=== PATIENT | male | born 1995 | race Caucasian/White ===

== ENCOUNTER 2017-03-13 08:18 | Emergency (ER) | payer BC ==
[2017-03-13 08:28] VITALS: RESP 18
--- NOTE | 2017-03-13 08:47 | EDPHY ---
H & P Time Seen by Provider: 03/13/17 08:40 HPI/ROS: CHIEF COMPLAINT: Irregular heart rate HISTORY OF PRESENT ILLNESS: 21-year-old man presents with irregular heartbeat and skipping heart rate. He says it has been happening for at least the past year but may be worse last 2 months. He presents today saying that he felt his heart skipping beats this morning or being irregular and started having tingling and numbness in both hands and "feeling all panicked "so presents to the emergency department for evaluation. He feels heart rate is slowing down speeding up and that it "drops a beat "but without actual syncope or fainting. No chest pain or shortness of breath. No leg swelling or recent travel or immobilization. REVIEW OF SYSTEMS: Eye: no change in vision ENT: no sore throat Cardiac: HPI Pulmonary: no cough or SOB Abdomen: no vomiting, diarrhea, abdominal pain Musculoskeletal: no back pain Skin: no rash Neuro: no headache Constitutional: no fever : no urinary symptoms A comprehensive 10 point review of systems is otherwise negative aside from elements mentioned in the history of present illness. PAST MEDICAL HISTORY: Negative except for seasonal allergies Social history: No tobacco cocaine or amphetamines General Appearance: Alert and conversant, cooperative. Eyes: No scleral icterus. ENT, Mouth: Normal mucous membranes. Respiratory: Normal respiratory effort, breath sounds equal, lungs are clear to auscultation. Cardiovascular: Regular rate and rhythm. Occasional extrasystole. Gastrointestinal: Abdomen is soft and non tender. Neurological: Alert and oriented x3. Normally conversant. Face symmetric, normal movement and sensation in all extremities. Skin: Warm and dry, no rashes. Musculoskeletal: No peripheral edema and no joint swelling. No calf tenderness. Psychiatric: Moderately anxious. Emergency Department course/MDM: Patient's rhythm strips are reviewed and at 8:42 a.m. he is seen to have PAC or PJC with subsequent pause, this is likely the source of his symptoms. Patient's EKG is reviewed with inverted P waves, he does transition on his rhythm strip after a dropped beat to upright P waves. Cardiology consultation, Stallworth at [phone]. Ectopic atrial rhythm, recommends discharge with office follow-up. 1030: Results discussed with patient and with his mother Judie at the patient' s request. Smoking Status: Current some day smoker Constitutional: Initial Vital Signs Temperature (C) 36.5 C 12/20/17 08:26 Heart Rate 98 03/13/17 08:26 Respiratory Rate 18 03/13/17 08:26 Blood Pressure 159/101 H 03/13/17 08:26 O2 Sat (%) 98 03/13/17 08:26 O2 Delivery Mode Room Air Allergies/Adverse Reactions: No Known Allergies Allergy (Unverified 03/13/17 08:25) Home Medications: Medication Instructions Recorded Flonase Nasal [place] 03/13/17 NK [No Known Home Meds] 03/13/17 Medical Decision Making - Diagnostics EKG Interpretation: 12-lead EKG interpreted by me; official reading is in trace master. My interpretation is ectopic atrial rhythm, rate 91 - Data Points Laboratory Results: Laboratory Results 03/13/17 09:40 03/13/17 09:40 03/13/17 03/13/17 09:40 09:40 WBC 6.54 10^3/uL 10^3/uL (3.80-9.50) RBC 4.96 10^6/uL 10^6/uL (4.40-6.38) Hgb 16.0 g/dL g/dL (13.7-17.5) Hct 43.0 % % (40.0-51.0) MCV 86.7 fL fL (81.5-99.8) MCH 32.3 pg pg (27.9-34.1) MCHC 37.2 g/dL H g/dL (32.4-36.7) RDW 12.1 % % (11.5-15.2) Plt Count 196 10^3/uL 10^3/uL (150-400) MPV 11.2 fL fL (8.7-11.7) Neut % (Auto) 68.1 % % (39.3-74.2) Lymph % (Auto) 23.4 % % (15.0-45.0) [place] % (Auto) 6.1 % % (4.5-13.0) Eos % (Auto) 1.1 % % (0.6-7.6) Baso % (Auto) 1.1 % % (0.3-1.7) Nucleat RBC Rel Count 0.0 % % (0.0-0.2) Absolute Neuts (auto) 4.46 10^3/uL 10^3/uL (1.70-6.50) Absolute Lymphs (auto) 1.53 10^3/uL 10^3/uL (1.00-3.00) Absolute Monos (auto) 0.40 10^3/uL 10^3/uL (0.30-0.80) Absolute Eos (auto) 0.07 10^3/uL 10^3/uL (0.03-0.40) Absolute Basos (auto) 0.07 10^3/uL 10^3/uL (0.02-0.10) Absolute Nucleated RBC 0.00 10^3/uL 10^3/uL (0-0.01) Immature Gran % 0.2 % % (0.0-1.1) Immature Gran # 0.01 10^3/uL 10^3/uL (0.00-0.10) Sodium 146 mEq/L H mEq/L (134-144) Potassium 4.0 mEq/L mEq/L (3.5-5.2) Chloride 106 mEq/L mEq/L (97-110) Carbon Dioxide 25 mEq/l mEq/l (22-31) Anion Gap 15 mEq/L mEq/L (8-16) BUN 16 mg/dL mg/dL (7-23) Creatinine 0.9 mg/dL mg/dL (0.7-1.3) Estimated GFR > 60 Glucose 90 mg/dL mg/dL (70-100) Calcium 9.7 mg/dL mg/dL (8.5-10.4) TSH 2.850 uIU/mL uIU/mL (0.465-4.680) Departure - Departure Disposition: Home, Routine, Self-Care Clinical Impression: Ectopic atrial rhythm Condition: Good Instructions: Atrial Tachycardia (ED) Additional Instructions: Your referred to Cardiology, follow-up next week in the office. Referrals: Steffanie Stallworth PA [Physician Licensed Mortgage Loan Officer] - As per Instructions Ralph Whyte MD [Medical Doctor] - As per Instructions
--- NOTE | 2017-03-13 08:53 | CPEKG ---
Heart Rate: 91 RR Interval: 659 P-R Interval: 180 QRSD Interval: 108 QT Interval: 368 QTC Interval: 453 P Friedens: -78 QRS Fried[place]: 86 T Wave Fried[place]: 39 EKG Severity - BORDERLINE ECG - EKG Impression: ECTOPIC ATRIAL RHYTHM Electronically Signed By: Stas Smith 13-Mar-2017 13:02:39
[2017-03-13 09:50] LABS: % IMMATURE GRANULYOCYTES 0.2 % (0.0-1.1); ABSOLUTE IMMATURE GRANULOCYTES 0.01 10^3/uL (0.00-0.10); ADD DIFF? NO; ADD MORPH? NO; ADD SCAN? NO; ATYPICAL LYMPHOCYTE FLAG 0 (0-99); FRAGMENT RBC FLAG 0 (0-99); LEFT SHIFT FLG 0 (0-99); LIPEMIA HEMOLYSIS FLAG 90 (0-99); MEAN CELL HEMOGLOBIN 32.3 pg (27.9-34.1); MEAN CELL HEMOGLOBIN CONCENTR. 37.2 g/dL (32.4-36.7); MEAN CELL VOLUME 86.7 fL (81.5-99.8); MEAN PLATELET VOLUME 11.2 fL (8.7-11.7); PLATELET CLUMPS FLAG 0 (0-99); PLATELET COUNT 196 10^3/uL (150-400); RED BLOOD CELL COUNT 4.96 10^6/uL (4.40-6.38); RED CELL DISTRIBUTION WIDTH 12.1 % (11.5-15.2)
[2017-03-13 10:14] LABS: ANION GAP 15 mEq/L (8-16); CALCIUM 9.7 mg/dL (8.5-10.4); CARBON DIOXIDE 25 mEq/l (22-31); CHLORIDE 106 mEq/L (97-110); CREATININE 0.9 mg/dL (0.7-1.3); GLOMERULAR FILTRATION RATE > 60; GLUCOSE 90 mg/dL (70-100); SODIUM 146 mEq/L (134-144)
[2017-03-13 10:28] VITALS: BP 123/78; PULSE 89; TEMP 98.6; O2SAT 99
== END 2017-03-13 10:35 | disposition home or self-care (01) ==
DX: I49.1 Atrial premature depolarization (principal); F17.200 Nicotine dependence, unspecified, uncomplicated